=== PATIENT | female | born 1995 | race Caucasian/White ===

== ENCOUNTER 2019-01-30 19:11 | Inpatient (IN) ==
[2019-01-30] MEDS ORDERED: Famotidine 20 MG/2 ML VIAL IVP PRN (19:28)
[2019-01-30] MEDS ORDERED: Metoclopramide 10 MG/2 ML VIAL IVP PRN (19:28)
[2019-01-30] MEDS ORDERED: Naloxone 0.4 MG/ML INJ IVP PRN (19:28)
[2019-01-30] MEDS ORDERED: Ondansetron 4 MG/2 ML VIAL IVP PRN (19:28)
[2019-01-30] MEDS ORDERED: *HR* Nalbuphine 10 MG/ML AMPUL IVP PRN (19:28)
[2019-01-30] MEDS ORDERED: Ringers Solution, Lactated 1,000 ML IVC SCH (19:30)
[2019-01-30] MEDS ORDERED: miSOPROStol 25 MCG TABLET PO PRN (19:38)
[2019-01-30 19:58] LABS: Basophils % 0.2 %; Eosinophils # 0.1 K/mcL (0.0-0.6); Eosinophils % 0.5 %; Hemoglobin 13.4 g/dL (11.5-15.4); Immature Granulocytes % 0.4 % (0-4); Lymphocytes # 1.7 K/mcL (0.6-4.6); Lymphocytes % 17.3 %; Mean Corpuscular HGB Conc 34.4 g/dL (31.6-35.5); Mean Corpuscular Volume 87.4 fL (83.0-100.0); Mean Platelet Volume 10.2 fL (9.4-12.4); Monocytes # 0.5 K/mcL (0.0-1.3); Monocytes % 5.5 %; Neutrophils # 7.4 K/mcL (1.6-8.9); Platelet Count 248 K/mcL (140-400); Red Blood Count 4.46 M/mcL (3.82-4.97); Red Cell Distribution Width 12.9 % (11.5-14.5); Segmented Neutrophils % 76.1 %
[2019-01-30 20:06] LABS: Amphetamine Screen,Urine Negative ng/mL (Cutoff=1000); Barbiturate Screen,Urine Negative ng/mL (Cutoff=200); Benzodiazepines Screen,Urine Negative ng/mL (Cutoff=200); Cannabinoid Screen,Urine Negative ng/mL (Cutoff = 50); Cocaine Screen,Urine Negative ng/mL (Cutoff= 300); Opiate Screen,Urine Negative ng/mL (Cutoff=300); Phencyclidine Screen,Urine Negative ng/mL (Cutoff=25)
--- NOTE | 2019-01-30 21:08 | Event Note ---
Date of Encounter: 01/30/19 Time of Encounter: 21:02 Double cervical lipscomb balloon placed without difficulty. 60 mL sterile water placed in uterine balloon, 40 mL instilled in vaginal balloon. Patient tolerated without difficulty and informed of plan to recheck cervix in 4 hours. Patient is agreeable to plan.
--- NOTE | 2019-01-30 21:29 | OB/GYN History & Physical ---
Date of Encounter: 01/30/19 Time of Encounter: 21:28 Assessment and Plan (1) 40 weeks gestation of Current visit: Yes Status: Acute 23yo at 40+6wks GA who prsents for scheduled IOL 1. IOL - scheduled 2/2 dates - adequate pelvic by exam: 2 - induction plan lipscomb/miso, GBS negative - vertex presentation, adequate fluid by 37wks scan - GBS negative, OK for epidural when patient desires 2. MWB - normotensive - VSS, HDS, afebrile - no VB/LOF/contraction(S). Dispo: Scheduled IOL, UTD OB care with Dr. Stiles. Plan for , lipscomb/miso. AROM when 4cm and EPIDURAL when patient desires. MD ANITA History of Present Illness Chief complaint: IOL at term HPI: Ms. Augustine is a 23 year old female at 40+6wks GA who presents today for a scheduled IOL. Uncomplicated with UTD PNC with Dr. Stiles. Doing well, reports active fetus. Denies n/v/d. Denies VB/LOF/contraction(S). Was checked in the office yesterday and found to be 1cm dilated. Plan was discussed with the patient regarding IOL as we were to start miso/lipscomb. GBS negative. Vertex presentation, ~7# leopolds. Past Med Surg Social Fam HX - Past Medical History Medical history: asthma Psychiatric history: anxiety, depression - Past Surgical History Additional surgical history: D&C - Social History Smoking Status: Never smoker Alcohol use: none Drug use: none - Family History Mother Living Status: Still Living Hx Family Respiratory Disorders: Yes (Asthma) Obstetrical History - Pregnancies : 2 Para: 1 Term: 1 Livin Medications and Allergies Famotidine [Pepcid] 20 mg PO BID 01/30/19 [History] Vit/Iron Fumarate/FA [ Tablet] 1 each PO DAILY 01/30/19 [H istory] Allergy/AdvReac Type Severity Reaction Status Date / Time No Known Allergies Allergy Verified 01/30/19 19:30 Exam - Constitutional Constitutional: well developed, well nourished, no acute distress - HEENT HEENT: Normocephaly, Mucus Membranes Moist - Lungs Respiratory exam: CTAB - Cardiovascular Cardiovascular exam: RRR - Abdomen Abdomen: Present: bowel sounds normal - Vagina Vagina: Present: normal moisture - Cervix Dilation: 1 Effacement: 60 Station: -2 - Anus/Rectum Anus/Rectum: Present: normal perianal skin, heme negative Results Result Diagrams: 01/30/19 19:40 All other labs normal. - VTE Reasons for not Prescribing Prophylaxis: Treatment not Indicated - Low risk for VTE
[2019-01-31] MEDS ORDERED: *HR* Ropivacaine/PF 0.2% 20 ML VIAL EP ONE (00:57)
[2019-01-31] MEDS ORDERED: *HR* FentaNYL (PF) 100 MCG/2 ML VIAL EP ONE (00:57)
[2019-01-31] MEDS ORDERED: Epidural Premix (fent/bupiv) 110 ML EP SCH (01:00)
[2019-01-31] MEDS ORDERED: *HR* FentaNYL (PF) 100 MCG/2 ML VIAL ONE ×3 (01:01→12:26)
--- NOTE | 2019-01-31 01:01 | Anesthesia Evaluation PreOp ---
Date of Encounter: 01/31/19 Time of Encounter: 00:58 - Past History Planned Operation: sebastian Cardiac History: Denies any Significant Hx Pulmonary History: Asthma PLASTIC EYE TECHNICIAN History: Denies Any Significant HX Other Medical History: GERD Anesthesia History: No Prior Anesthetic Complications, Past Anesthesia (d&c) : Yes Test: Positive Alcohol Use: none Drug use: none Medications and Allergies Famotidine [Pepcid] 20 mg PO BID 01/30/19 [History] Vit/Iron Fumarate/FA [ Tablet] 1 each PO DAILY 01/30/19 [His tory] Allergy/AdvReac Type Severity Reaction Status Date / Time No Known Allergies Allergy Verified 01/30/19 19:30 - Meds/Allergy Pre-op Review Medications Reviewed: Yes Allergies Reviewed: Yes Beta Blockers on Current Med List: No Anesthesia Results - Labs 01/30/19 19:40 Anesthesia Exam see nsg notes Height: 5'0" Weight: 79 NPO (# of Hours): 4 Pain Scale: 7 Pain Scale Used: Numeric (1 - 10) - HEENT Pupil (Motor): Pupils equal Mallampati: II Teeth: Normal Oral Opening: Greater than 3 - PLASTIC EYE TECHNICIAN LOC: Oriented PLASTIC EYE TECHNICIAN Motor: Normal RUE, Normal LUE, Normal RLE, Normal LLE, Normal Face PLASTIC EYE TECHNICIAN Sensory: Normal: RUE, LUE, RLE, LLE, Face - Cardiac Rhythm: Regular Murmur: None - Pulmonary Breath Sounds: bilateral Clear Respiratory Effort: Symmetrical Anesthesia Assess/Plan ASA Score: 2 Level of consciousness: Cooperative Anesthetic Plan: Epidural (risks discussed, questions answered, consented) Autologous Blood: No Monitoring Plan: Standard Monitors Recovery Plan: Other
[2019-01-31] MEDS ORDERED: Lidocaine -MPF 2% 5 ML VIAL ONE ×2 (01:02→01:29)
[2019-01-31] MEDS ORDERED: Epidural Premix (fent/bupiv) 110 ML EP ONE (01:03)
--- NOTE | 2019-01-31 01:49 | Anesthesia Procedures ---
Date of Encounter: 01/31/19 Time of Encounter: 01:47 Procedures: Anesthesia - Epidural/Spinal Patient ID/Chart reviewed: Yes Patient examined: Yes OB Eval: Gestational age: 40 OB Eval: : 2 OB Eval: Hx Para: 0 OB Eval: Dilated at (cm): 4 OB Eval: Contractions: Non-stressed pattern Consent Obtained: Yes Supplemental Oxygen: None/Room Air Site Prep: Aseptic Technique, Sterile prep and drape, 0.5% Chlorhexidine/Alcohol Patient position: upright Local Anesthetic: Lidocaine 1% Amount of Local Anesthetic used: 10 Touhy Needle Gauge: 18 Touhy Needle Depth (cm): 6 Catheter Depth at Skin (cm): 15 Test Dose (1.5% Lido + Epi): Volume given (mls): 6 (1st test dose +) Test Dose Result: Negative (2nd insertion test dose neg) Loading Dose: Fentanyl (mcg): 100 Loading Dose: Other: ropivacaine 0.2% 7cc Loading Dose Administered: Thru Touhy Needle Infusion Med: 0.125% Bupivacaine w/ 2 mcg/ml Fentanyl Infusion Rate (mls/hr): 14 (pcea 5cc q30") Catheter Secured in Place: Tegaderm Interspace Used: L4-L5 Loss of Resistance (ARIAN): Yes Blood: No (L2-3 positive test dose) CSF: No Paresthesia: No Procedure: aseptic, elizabeth well VSS,effective Vitals + FHT's: 122/80 88 fht 132
[2019-01-31] MEDS ORDERED: 0.9 % Sodium Chloride 500 ML ONE (05:09)
--- NOTE | 2019-01-31 05:16 | Event Note ---
Date of Encounter: 01/31/19 Time of Encounter: 05:12 Called to evaluate patient at bedside, concern for early and late deceleration(S). Patient was still intact with a baseline of ~160bpm with mod variability. The patient is s/p epidural at 0130. AROM was performed at 0500 and internal monitors were placed. Thick meconium was appreciated as the baseline decreased to 145 and moderate variability was appreciated. We did start a 500cc amnioinfusion (not for variable decelerations) but rather for the thick meconium appreciated and minimal fluid that was appreciated. The patient is 41 weeks GA therefore it is expected that her fluid be less at time of rupture and that meconium was appreciated. SVE: 6-7/80/-1 s/p AROM. Patient is now manish s/p lipscomb and miso, not currently on PITOCIN. Adequate contractions q3-4minutes. Will continue to plan for . We did discussed STAT CS should baby have continuous late deceleration(S) despite position changes and conservative management changes. MD ANITA
--- NOTE | 2019-01-31 07:14 | Event Note ---
Date of Encounter: 01/31/19 Time of Encounter: 07:10 Called to see patient at bedside to evaluate for possible late deceleration(S). Not recurrnet, baseline still 140-150bpm with moderate variability. Scalp stimulation was performed on patient, large accels appreciated. RN had been attempted postion changes and O2 was on patient. SVE 7-8/80/-1. We changed position to hands and knees, as baby felt OP. Patient still spontaneously manish adequately without any pitocin. Internals skill in place. CEFM now reassuring with mod sandi, +accels, no decels. Will keep patient in hands and knees position for ~20 or as long as able and then rotate back to side and attempt use of peanut ball. MD ANITA
[2019-01-31] MEDS ORDERED: Bupivacaine-MPF 0.25% 10 ML VIAL ONE (07:40)
--- NOTE | 2019-01-31 08:01 | Anesthesia Progress Note ---
Date of Encounter: 01/31/19 Time of Encounter: 07:45 Anesthesia Note - Note Note: 01/31/19 07:58 called to LDR 8 for c/o pain with contactions and back pain 6/10. States has been pushing button without relief. Nursing staff states pump is failing to deliver demand bolus. Upon inspection, epidural catheter has not migrated out. Bolused patient with 8ml 0.25% buoivacaine with 100 mcg of fentanyl in 3 divided doses with stable VS and FHTs. At completion of bolus patient voiced relief of pain. Reprogrammed pump for no demand bolus and button removed.
[2019-01-31] MEDS ORDERED: Oxytocin 20 units/ LR 1000 mL 20 UNIT/1,000 ML BAG IVC SCH (08:15)
--- NOTE | 2019-01-31 11:04 | Event Note ---
Date of Encounter: 01/31/19 Time of Encounter: 11:02 Pt status unchanged. Repeat cervical check unchanged. at a -3 station with no descent. Patient is been flipped by nursing both sides of extreme positions trying to bring baby down. with occasional late decelerations. Currently tracing reassuring with category 1 tracing be noted. Adequate labor pattern has been documented. Patient currently on 6 units of Pitocin. Cervix 7-8 cm dilated and 80% effaced. Patient has been unchanged since 7 AM.
[2019-01-31] MEDS ORDERED: Azithromycin 1,000 MG in D5% in Water 500 ML IVPB ONE (11:43)
--- NOTE | 2019-01-31 11:43 | Event Note ---
Date of Encounter: 01/31/19 Time of Encounter: 11:42 Patient now with recurrent late decelerations. Patient has been flipside side. Slow return to baseline noted. Still with accelerations. Pitocin has been turned off. No cervical change. No descent of the . Patient would like to proceed with section. We will notify anesthesia.
[2019-01-31] MEDS ORDERED: CeFAZolin Premix DUPLEX 2,000 MG/50 ML BAG IVPB ONE (11:44)
[2019-01-31] MEDS ORDERED: *HR* Morphine Sulfate/PF 10 MG/10 ML AMPUL ONE (11:49)
[2019-01-31] MEDS ORDERED: EPHEDrine 50 MG/ML VIAL ONE (11:49)
[2019-01-31] MEDS ORDERED: Chloroprocaine/PF 20 ML VIAL INFILT ONE (11:49)
[2019-01-31] MEDS ORDERED: *HR* Phenylephrine 10 MG/ML VIAL ONE (11:50)
[2019-01-31] MEDS ORDERED: Water for inj. (sterile) 10 ML IV ONE (11:51)
[2019-01-31] MEDS ORDERED: *HR* Oxytocin 10 UNIT/ML VIAL IM ONE ×2 (11:54→13:14)
[2019-01-31] MEDS ORDERED: Ibuprofen 400 MG TABLET PO PRN (12:03)
[2019-01-31] MEDS ORDERED: *HR* Morphine 2 MG/ML SYRINGE IVP PRN (12:03)
[2019-01-31] MEDS ORDERED: *HR* OxyCODONE/APAP 5/325 TABLET PO PRN (12:03)
[2019-01-31] MEDS ORDERED: Naloxone 0.4 MG/ML INJ IVP PRN (12:03)
[2019-01-31] MEDS ORDERED: *HR* HYDROmorphone (PF) 1 MG/ML SYRINGE IVP PRN (12:03)
[2019-01-31] MEDS ORDERED: Ringers Solution, Lactated 1,000 ML ONE ×2 (12:05→13:14)
[2019-01-31] MEDS ORDERED: Acetaminophen IV 1,000 MG/100 ML INFUS..BTL IVPB ONE (12:08)
--- NOTE | 2019-01-31 13:12 | OB/GYN Procedure Note ---
Section - Date of procedure: 01/31/19 Preop diagnosis: arrest of descent, arrest of dilation, category 2 FHT tracing Post-op diagnosis: same Procedure: section, primary low transverse Surgeon: Westley Reyes Blood Loss: 100 Was there an facilities assistant present: No Anesthesiologist: Cathy Parra Solar Mechanical Engineer: Elli Ron Anesthesia Type: Epidural section complications: none Disposition: Post floor Specimens: Placenta - Infant (s) A Infant Delivery Date: 01/31/19 Infant Delivery Time: 12:34 Presentation: vertex Position: OA Gender: Female Viability: Viable Pounds: 6 Ounces: 14 Gram Weight: 3.125 kg at 1 minute: 9 at 5 minutes: 9 Shoulder Dystocia: not encountered Placenta: partial extraction Cord: nuchal cord - Narrative Narrative: Patient is been monitored all morning with no cervical change. still at a -3 station. No descent noted and no dilation with adequate labor contraction pattern being seen. Patient began having recurrent late decelerations. Patient was turned from side to side, placing patient in hands and knees position, Tracing would straighten out for a little bit, but then the late decelerations would return. At this point with no cervical change, no descent and recurrently decelerations we discussed section with patient. Patient and her family did wish to proceed. She was taken for primary section. Patient was taken back to the operating room with IV in place. Her epidural was bolused. She was then prepped and draped in the usual sterile fashion. Patient's urine was red going back into the OR. It has been bloody when I came in this morning. Once adequate analgesia was achieved, a Pfannenstiel incision was made. It was carried sharply through the subcutaneous and fatty tissue, until the fascial layer was reached. The fascia was then nicked in the midline and incised bilaterally with Angelo scissors. It was then dissected vertically for adequate exposure. Rectus abdominis musculature was in the midline. The peritoneum was sharply entered and dissected vertically. A bladder blade was placed at the inferior margin of the incision. The bladder flap was then developed. The bladder blade was placed over the bladder flap, and a low transverse incision was then made in the lower uterine segment. Fluid was noted be meconium-stained. The was in occiput anterior presentation. The infant's head was then delivered easily. There was a cord around the neck 1 which was reduced. The rest the infant was then delivered easily. cried immediately upon delivery. Cord was cut to cut. The was then passed to NICU team in attendance. Cord blood was obtained. The placenta was delivered via uterine massage and lavage. The uterus was then delivered. Uterine lavage again was performed. Bladder blade was placed at the inferior margin incision. The uterine incision was then closed with 0 Vicryl suture in a running locking fashion. There was excellent hemostasis. The uterus was then replaced the pelvic cavity. The pelvic cavity was then rinsed thoroughly with sterile water 2. Seeing no bleeding the procedure was terminated. Sponge, needle, and instrument count correct 2. The fascia was then closed with 0 Vicryl suture in a running nonlocking fashion. The suprafascial region was rinsed thoroughly with sterile water 2. C no bleeding the skin was then closed susanna. Patient tolerated the procedure well. Assessment blood loss 100 mL. Patient a female weight was 6 lbs. 14 oz. with Apgars of 9 at 1 minute and 9 at 5 minutes.
[2019-01-31] MEDS ORDERED: Metoclopramide 10 MG/2 ML VIAL IVP PRN (15:24)
[2019-01-31] MEDS ORDERED: Sennosides 8.6 MG TABLET PO PRN (15:24)
[2019-01-31] MEDS ORDERED: Simethicone 80 MG TAB.CHEW PO PRN (15:24)
[2019-01-31] MEDS ORDERED: Measles/Mumps/Rubella Vacc 0.5 ML VIAL SQ ONE (15:24)
[2019-01-31] MEDS ORDERED: Ondansetron 4 MG/2 ML VIAL IVP PRN (15:24)
--- NOTE | 2019-01-31 15:33 | Anesthesia Evaluation Post Op ---
Date of Encounter: 01/31/19 Time of Encounter: 15:10 - Vital Signs Vital Signs: Patient maintained normal VS throughout PACU stay and upon arrival to MIU. - Lungs Lungs: Clear Ascult./Percussion - Airway Airway: Non-obstructed - Cardiovascular Regular Rate - Mental Status Mental Status: Alert & Oriented, Answers Appropriately - Pain Pain Scale: 6 Pain Scale used: Numeric (1 - 10) - Nausea Vomiting Nausea Vomiting: Not Present - Hydration Hydration: Tolerates oral liquids, Paula catheter - Discharge PostOp Status: Transfer Patient to floor
[2019-01-31] MEDS: Oxytocin 20 units/ LR 1000 mL 20 UNIT/1,000 ML BAG IVC SCH (17:32)
[2019-01-31] MEDS: *HR* OxyCODONE/APAP 5/325 TABLET PO PRN (20:54)
[2019-01-31] MEDS: Ibuprofen 600 MG TABLET PO PRN (23:42)
[2019-02-01] MEDS: Ibuprofen 600 MG TABLET PO PRN ×2 (04:24→11:36)
[2019-02-01] MEDS: Oxytocin 20 units/ LR 1000 mL 20 UNIT/1,000 ML BAG IVC SCH (04:26)
[2019-02-01 06:25] LABS: Basophils % 0.2 %; Eosinophils # 0.1 K/mcL (0.0-0.6); Eosinophils % 0.5 %; Hematocrit 32.6 % (35.3-44.9); Immature Granulocytes % 0.6 % (0-4); Lymphocytes # 1.1 K/mcL (0.6-4.6); Lymphocytes % 8.1 %; Mean Corpuscular HGB Conc 33.7 g/dL (31.6-35.5); Mean Corpuscular Volume 88.8 fL (83.0-100.0); Mean Platelet Volume 10.1 fL (9.4-12.4); Monocytes # 0.9 K/mcL (0.0-1.3); Monocytes % 6.4 %; Neutrophils # 11.1 K/mcL (1.6-8.9); Platelet Count 184 K/mcL (140-400); Red Blood Count 3.67 M/mcL (3.82-4.97); Segmented Neutrophils % 84.2 %
[2019-02-01] MEDS: Prenatal Vit/FA 1 EACH TABLET PO SCH (07:59)
--- NOTE | 2019-02-01 08:57 | OB/GYN Progress Note ---
Date of Encounter: 02/01/19 Time of Encounter: 08:54 - Assessment and Plan (1) Status post delivery Current Visit: Yes Status: Acute Patient meeting day one milestones. Continue routine /postop care Pain well-controlled with prescribed medications. Patient is up and ambulating in room and looks very well Voiding without difficulty, tolerating regular diet, bleeding light.. No bowel movement yet. Begin postop antibiotics per Dr. Stiles's recommendation Anticipate discharge tomorrow (2) Breast feeding status of mother Current Visit: Yes Status: Acute support as needed Provide prescription for breast pump Subjective - Subjective Principal diagnosis: Status post section Interval history: Date of procedure: 01/31/19 Preop diagnosis: arrest of descent, arrest of dilation, category 2 FHT tracing Post-op diagnosis: same Procedure: section, primary low transverse Surgeon: Westley Reyes Blood Loss: 100 Was there an [employer] assistant manager present: No Anesthesiologist: Cathy Parra Commercial Lawn Specialist: Elli Ron Anesthesia Type: Epidural section complications: none Disposition: Post floor Specimens: Placenta - (s) Infant A Infant Delivery Date: 01/31/19 Infant Delivery Time: 12:34 Presentation: vertex Position: OA Gender: Female Viability: Viable Pounds: 6 Ounces: 14 Gram Weight: 3.125 kg at 1 minute: 9 at 5 minutes: 9 Shoulder Dystocia: not encountered Placenta: partial extraction Cord: nuchal cord - Narrative Narrative: Patient is been monitored all morning with no cervical change. Infant still at a -3 station. No descent noted and no dilation with adequate labor contraction pattern being seen. Patient began having recurrent late decelerations. Patient was turned from side to side, placing patient in hands and knees position, Tracing would straighten out for a little bit, but then the late decelerations would return. At this point with no cervical change, no descent and recurrently decelerations we discussed section with patient. Patient and her family did wish to proceed. She was taken for primary section. Patient was taken back to the operating room with IV in place. Her epidural was bolused. She was then prepped and draped in the usual sterile fashion. Patient's urine was red going back into the OR. It has been bloody when I came in this morning. Once adequate analgesia was achieved, a Pfannenstiel incision was made. It was carried sharply through the subcutaneous and fatty tissue, until the fascial layer was reached. The fascia was then nicked in the midline and incised bilaterally with Angelo scissors. It was then dissected vertically for adequate exposure. Rectus abdominis musculature was in the midline. The peritoneum was sharply entered and dissected vertically. A bladder blade was placed at the inferior margin of the incision. The bladder flap was then developed. The bladder blade was placed over the bladder flap, and a low transverse incision was then made in the lower uterine segment. Fluid was noted be meconium-stained. The was in occiput anterior presentation. The 's head was then delivered easily. There was a cord around the neck 1 which was reduced. The rest the infant was then delivered easily. Infant cried immediately upon delivery. Cord was cut to cut. The was then passed to NICU team in attendance. Cord blood was obtained. The placenta was delivered via uterine massage and lavage. The uterus was then delivered. Uterine lavage again was performed. Bladder blade was placed at the inferior margin incision. The uterine incision was then closed with 0 Vicryl suture in a running locking fashion. There was excellent hemostasis. The uterus was then replaced the pelvic cavity. The pelvic cavity was then rinsed thoroughly with sterile water 2. Seeing no bleeding the procedure was terminated. Sponge, needle, and instrument count correct 2. The fascia was then closed with 0 Vicryl suture in a running nonlocking fashion. The suprafascial region was rinsed thoroughly with sterile water 2. C no bleeding the skin was then closed susanna. Patient tolerated the procedure well. Assessment blood loss 100 mL. Patient a female weight was 6 lbs. 14 oz. with Apgars of 9 at 1 minute and 9 at 5 minutes. Patient reports: appetite normal, voiding normally, pain well controlled, ambulating normally : doing well, nursing well Objective - Vital Signs Latest vital signs: Vital Signs Temp Pulse Resp BP Pulse Ox 02/01/19 08:14 98.2 F 95 16 103/69 02/01/19 04:30 98.9 F 97 14 104/76 98 01/31/19 23:29 98.6 F 100 15 112/71 98 01/31/19 20:00 97.6 F 89 14 103/69 99 01/31/19 18:20 97.5 F L 93 14 113/75 98 01/31/19 17:31 98.2 F 101 14 127/73 98 01/31/19 16:36 98.0 F 87 14 125/79 98 01/31/19 16:01 98.1 F 92 14 123/77 99 01/31/19 15:30 97.7 F 86 14 119/75 99 Intake and Output 01/31/19 02/01/19 02/01/19 23:59 07:59 15:59 Intake Total 1800 / 1800 Output Total 1400 / 2600 1200 / 1200 Balance -1400 / -2600 600 / 600 Intake: IV Fluids 1000 / 1000 Pitocin 20 unit In 1,000 ml @ 1000 / 1000 125 mls/hr IVC .Q8H ANJALI Rx#: [id number] Oral 800 / 800 Output: Urine 500 / 500 1200 / 1200 Catheter 900 / 2100 Other: Weight 77.111 kg Patient Weight 02/01/19 23:59 Weight 77.111 kg - Exam Lungs: bilateral: normal Chest: Normal S1, Normal S2 Extremities: Present: normal Abdomen: Present: normal appearance, soft Incision: Present: normal, intact (with susanna) Uterus: Present: normal, firm Fundal Height: 0 (@u) - Labs Labs: Laboratory Results - last 24 hr 02/01/19 06:03 WBC 13.2 H RBC 3.67 L Hgb 11.0 L D Hct 32.6 L MCV 88.8 MCH 30.0 MCHC 33.7 RDW 13.0 Plt Count 184 MPV 10.1 Immature Gran % 0.6 Seg Neutrophils % 84.2 Lymphocytes % 8.1 Monocytes % 6.4 Eosinophils % 0.5 Basophils % 0.2 Neutrophils # 11.1 H Lymphocytes # 1.1 Monocytes # 0.9 Eosinophils # 0.1 Basophils # 0.0
[2019-02-01] MEDS ORDERED: NON-FORMULARY MEDICATION 1 EACH EACH (Prenatal Vit/Iron Fumarate/Fa [Prenatal Tablet] 1 EA PO SCH (09:00)
[2019-02-01] MEDS: cephALEXin 500 MG CAPSULE PO SCH ×2 (09:35→19:46)
[2019-02-01] MEDS: *HR* OxyCODONE/APAP 5/325 TABLET PO PRN ×2 (09:45→19:46)
[2019-02-02] MEDS: Ibuprofen 600 MG TABLET PO PRN ×2 (00:06→09:02)
[2019-02-02] MEDS: *HR* OxyCODONE/APAP 5/325 TABLET PO PRN ×2 (03:35→11:16)
[2019-02-02] MEDS ORDERED: Lanolin 7 G OINT...G. TP PRN (03:49)
[2019-02-02 08:10] VITALS: BP 114/74
[2019-02-02] MEDS: cephALEXin 500 MG CAPSULE PO SCH (09:02)
[2019-02-02] MEDS: Prenatal Vit/FA 1 EACH TABLET PO SCH (09:02)
--- NOTE | 2019-02-02 09:51 | Discharge Summary ---
Date of Encounter: 02/02/19 Time of Encounter: 09:48 - Discharge Diagnosis (1) Status post primary low transverse section Priority: Primary Status: Acute Comments: Feeling well Tolerating regular diet Pain well-controlled with by mouth pain meds Ambulating independently Voiding independently Lochia light Passing flatus, no BM yet Vital signs stable Discharge home today (2) Breast feeding status of mother Priority: Secondary Status: Acute Comments: Community resources provided - Discharge Medications Prescriptions: New Breast Pump [BREAST PUMP] 1 each .ROUTE AD #1 each cephALEXin [Keflex] 500 mg PO BID 4 Days #8 capsule Ibuprofen [Motrin] 600 mg PO Q6HR PRN #30 tablet PRN Reason: Cramping OxyCODONE/APAP 5/325 [Percocet 5/325 MG] 1 each PO Q6H PRN 5 Days #20 tablet PRN Reason: Moderate pain 4-6 Docusate [Colace] 100 mg PO BID #30 capsule Lanolin [Lansinoh] 1 appl TP QID PRN oint...g. PRN Reason: Continued Vit/Iron Fumarate/FA [ Tablet] 1 each PO DAILY Famotidine [Pepcid] 20 mg PO BID Home Medications: Famotidine [Pepcid] 20 mg PO BID 01/30/19 [History] Vit/Iron Fumarate/FA [ Tablet] 1 each PO DAILY 01/30/19 [Histo ry] Breast Pump [BREAST PUMP] 1 each .ROUTE AD #1 each 02/01/19 [Rx] Docusate [Colace] 100 mg PO BID #30 capsule 02/02/19 [Rx] Ibuprofen [Motrin] 600 mg PO Q6HR PRN #30 tablet 02/02/19 [Rx] Lanolin [Lansinoh] 1 appl TP QID PRN oint...g. 02/02/19 [Rx] OxyCODONE/APAP 5/325 [Percocet 5/325 MG] 1 each PO Q6H PRN 5 Days #20 tablet 02/02/19 [Rx] cephALEXin [Keflex] 500 mg PO BID 4 Days #8 capsule 02/02/19 [Rx] Allergies/Adverse Reactions: Allergy/AdvReac Type Severity Reaction Status Date / Time No Known Allergies Allergy Verified 01/30/19 19:30 Data Procedures and tests throughout hospitalization: Laboratory Tests 01/30/19 01/30/19 02/01/19 19:40 19:40 06:03 WBC 9.7 13.2 H RBC 4.46 3.67 L Hgb 13.4 11.0 L D Hct 39.0 32.6 L MCV 87.4 88.8 MCH 30.0 30.0 MCHC 34.4 33.7 RDW 12.9 13.0 Plt Count 248 184 MPV 10.2 10.1 Immature Gran % 0.4 0.6 Seg Neutrophils % 76.1 84.2 Lymphocytes % 17.3 8.1 Monocytes % 5.5 6.4 Eosinophils % 0.5 0.5 Basophils % 0.2 0.2 Neutrophils # 7.4 11.1 H Lymphocytes # 1.7 1.1 Monocytes # 0.5 0.9 Eosinophils # 0.1 0.1 Basophils # 0.0 0.0 Urine Opiates Screen Negative Ur Barbiturates Screen Negative Ur Phencyclidine Scrn Negative Ur Amphetamines Screen Negative U Benzodiazepines Scrn Negative Urine Cocaine Screen Negative U Marijuana (THC) Screen Negative Ur Drug Screen Interp See Below Date of admission: 01/30/19 19:11 Primary care physician: PCP NONE Discharging clinician: Debra Claire Anticipated date of discharge: 02/02/19 - Patient Status Disposition: Home, Self-Care Condition: Good Functional capacity at discharge: independent ambulation Overall status at discharge: patient is progressing back to baseline - Discharge Instructions Follow Up With: NONE,PCP [Primary Care Provider] - Westley Stiles MD [Partnered Physician] - - Diet and Activity Activity: increase activity as tolerated Diet: regular diet Hospital Course Reason for admission: induction of labor, IUP at term Delivery: section Episiotomy: none Laceration: none Other procedures: none complications: none Discharge diagnosis: IUP at term delivered [place] baby: female Hospital course: Patient presented for term induction of labor. She progressed to 8 cm and did not dilate any further. Nor did she have descent. She was taken to C- section for failed induction of labor and intolerance to labor secondary to repetitive late decelerations and resolved with intervention. Her course has been uncomplicated. She is requesting to go home today. She will be discharged home with appropriate medications and follow-up. Time Attestation: Total time spent providing and/or coordinating discharge services: Time Spent: Less than 30 minutes - VTE Reasons for not Prescribing Prophylaxis: Treatment not Indicated - Low risk for VTE Documentation of Mechanical Device: Intermittent pneumatic compression device Exam - Constitutional Vitals: Temp Pulse Resp BP Pulse Ox 98.0 F 90 16 114/74 99 02/02/19 08:08 02/02/19 08:08 02/02/19 08:08 02/02/19 08:08 02/02/19 08:08 General appearance IM: A&O X 3 - Respiratory Respiratory exam: Present: CTAB - Cardiovascular Cardiovascular exam IM: Present: RRR, +S1, +S2 - GI/Abdominal GI/Abdominal exam IM: normal bowel sounds, no peritoneal signs Incision: normal, dry, intact - Rectal Rectal exam: deferred - Uterine Tone: Firm Uterus Position: At Umbilicus, Midline - Extremities Exam Extremities exam IM: Present: full ROM, normal capillary refill, normal inspecti on, radial pulses palpable and symmetrical - Neurological Exam Neurological exam: alert, CN II-XII intact, normal gait, oriented X3, reflexes normal, no focal deficits, strengths equal and symetr throughout - Psychiatric Additional comments: Patient reports history of anxiety. Signs and symptoms of depression and anxiety discussed with patient and family in both verbalized understanding of when to seek help. - Skin Additional comments: Breasts: Soft, nontender; nipples intact without erythema
[2019-02-02] MEDS ORDERED: Measles/Mumps/Rubella Vacc 0.5 ML VIAL SQ ONE (10:45)
== END 2019-02-02 13:34 | disposition home or self-care (01) | DRG 788 ==
LOC: 1NENULAB 19:11 → 1NENUOBS 01-31 15:24
PROVIDERS: ADMIT Student in an Organized Health Care Education/Training Program; ATTEND Obstetrics & Gynecology

== ENCOUNTER 2019-04-02 16:21 | Observation (INO) ==
[2019-04-02 17:07] LABS: Hematocrit 41.4 % (35.3-44.9); Hemoglobin 13.9 g/dL (11.5-15.4); Mean Corpuscular HGB Conc 33.6 g/dL (31.6-35.5); Mean Corpuscular Hemoglobin 29.6 pg (28.0-33.3); Mean Corpuscular Volume 88.3 fL (83.0-100.0); Mean Platelet Volume 9.3 fL (9.4-12.4); Platelet Count 249 K/mcL (140-400); Red Blood Count 4.69 M/mcL (3.82-4.97); Red Cell Distribution Width 11.9 % (11.5-14.5); White Blood Count 4.4 K/mcL (4.3-11.1)
--- NOTE | 2019-04-02 17:14 | Emergency Department Note ---
Disposition Clinical Impression: Biliary colic Disposition: Admitted As Inpatient Condition: Fair Referrals: NONE,PCP [Primary Care Provider] - Forms: ED Satisfaction Letter, Work/School Release Time of Disposition: 19:34 General Adult HPI - General Chief complaint: ED Abdominal Pain Stated complaint: Gallbladder pain Time Seen by Provider: 04/02/19 16:32 Nursing Notes Reviewed: Yes Vital Signs Reviewed: Yes - History of Present Illness HPI Narrative: Right upper quadrant abdominal pain which is present during her in the winter and spring and then occurred one week ago and now has been present since last night. It is a dull feeling. Intermittent. She denies any dysuria or urinary frequency, blood in the urine or stool, vaginal bleeding. No abnormal vaginal discharge. No fevers. She did vomit twice around 4:00 in the morning. Social history: She is here with her grandmother. No smoking or alcohol Pain Scale: 3 - Related Data Home Medications Medication Instructions Recorded Confirmed Famotidine [Pepcid] 20 mg PO BID 01/30/19 01/30/19 Vit/Iron Fumarate/FA 1 each PO DAILY 01/30/19 01/30/19 [ Tablet] Previous Rx's Medication Instructions Recorded Breast Pump [BREAST PUMP] 1 each .ROUTE AD #1 each 02/01/19 Docusate [Colace] 100 mg PO BID #30 capsule 02/02/19 Ibuprofen [Motrin] 600 mg PO Q6HR PRN #30 tablet 02/02/19 Lanolin [Lansinoh] 1 appl TP QID PRN oint...g. 02/02/19 Allergies Allergy/AdvReac Type Severity Reaction Status Date / Time No Known Allergies Allergy Verified 01/30/19 19:30 All systems ED: reviewed and negative except as stated. Past Medical History - Past Medical History Medical history: Reports: asthma Psychiatric history: Reports: anxiety, depression - Social History Smoking Status: Never smoker Alcohol use: Reports: none Drug use: Reports: none Physical Exam CONSTITUTIONAL: Alert and oriented X3, well-nourished, well appearing, in no apparent distress HEAD: Normocephalic; atraumatic. EYES: PERRL, no scleral icterus. NOSE: The nose is normal in appearance without rhinorrhea RESP: Normal chest excursion with respiration; breath sounds clear and equal bilaterally; no wheezes, rhonchi, or rales CARD: Regular rhythm, without murmurs, rub or gallop ABD: Non-distended; mild discomfort with palpation right upper quadrant but this area is soft without rigidity, rebound, guarding. Normal appearance. Elsewhere the abdomen is non-tender, soft,without rigidity, rebound or guarding SKIN: Normal for age and race; warm and dry; no apparent lesions Course Vital Signs Temperature 97.7 F 04/02/19 16:22 Pulse Rate 75 04/02/19 16:22 Respiratory Rate 20 04/02/19 16:22 Blood Pressure 121/80 04/02/19 16:22 O2 Sat by Pulse Oximetry 98 04/02/19 16:22 Temperature 97.7 F 04/02/19 18:16 Pulse Rate 75 04/02/19 18:16 Respiratory Rate 20 04/02/19 18:16 Blood Pressure 121/80 04/02/19 18:16 O2 Sat by Pulse Oximetry 98 04/02/19 18:16 Oxygen Delivery Oxygen Delivery Room Air Medical Decision Making - MDM Narrative Medical decision making narrative: Labs, gallbladder ultrasound, urine testing. Results pending. The patient is bright and alert and in no distress. 1713 I did see the patient again and also spoke with Dr. David Tracey who will come down to the ED to see the patient. Does have significant elevation in her liver enzymes. The patient does not want to stay because she is going through a bad divorce and is due to drop off her 9-week-old infant with the father of the baby tomorrow. She can further discuss this with Dr. David Tracey and at this time disposition is pending results of the conversation. 8 I did speak with Dr. David Tracey and she has seen the patient spoke with the patient the patient will be admitted to the hospital for biliary colic - Medical Records Medical records reviewed: Yes I reviewed the patient's medical records. - Lab Data Lab results reviewed: Yes I reviewed the patient's lab results. Result diagrams: 04/02/19 16:53 04/02/19 16:53 Lab Results 04/02/19 04/02/19 04/02/19 Range/Units 16:53 16:53 18:20 WBC 4.4 (4.3-11.1) K/mcL RBC 4.69 (3.82-4.97) M/mcL Hgb 13.9 (11.5-15.4) g/dL Hct 41.4 (35.3-44.9) % MCV 88.3 (83.0-100.0) fL MCH 29.6 (28.0-33.3) pg MCHC 33.6 (31.6-35.5) g/dL RDW 11.9 (11.5-14.5) % Plt Count 249 (140-400) K/mcL MPV 9.3 L (9.4-12.4) fL Sodium 137 (136-145) mEq/L Potassium 4.0 (3.5-5.1) mEq/L Chloride 102 (98-107) mEq/L Carbon Dioxide 25 (23-29) mEq/L BUN 7 (6-20) mg/dL Creatinine 0.62 (0.60-1.20) mg/dL Est GFR ( Amer) > 60 (> 60) Est GFR (Non-Af Amer) > 60 (> 60) BUN/Creatinine Ratio 11 (6-26) Glucose 91 (70-105) mg/dL Calculated Osmolality 282 (280-300) Calcium 9.6 (8.6-10.3) mg/dL Total Bilirubin 5.1 H (0.3-1.0) mg/dL Direct Bilirubin 3.1 H (0.0-0.2) mg/dL Indirect Bilirubin 2.0 H (0.0-1.2) mg/dL AST 1093 H (13-39) Units/L ALT 1064 H (7-52) Units/L Alkaline Phosphatase 270 H (34-104) Units/L Serum Total Protein 7.4 (6.4-8.9) g/dL Albumin 4.6 (3.5-5.7) g/dL Globulin 2.8 (2.4-3.5) g/dL Albumin/Globulin Ratio 1.6 (1.1-2.2) Lipase 41 (11-82) Units/L Urine Color Yellow (Yellow) Urine Clarity Cloudy A (Clear) Urine pH 6.5 (5.0-8.0) pH Units Ur Specific Deeth 1.005 L (1.010-1.025) Urine Protein Negative (Neg-Trace) mg/dL Urine Glucose (UA) Normal (Normal) mg/dL Urine Ketones Trace H (Negative) mg/dL Urine Blood Negative (Negative) Urine Nitrite Negative (Negative) Urine Bilirubin Small H (Negative) Urine Urobilinogen Normal (Normal) mg/dL Ur Leukocyte Esterase Moderate H (Negative) Urine Microscopic RBC 0-3 (0-3) per hpf Urine Microscopic WBC 5-15 H (0-3) per hpf Ur Squamous Epith Cells Many H (None-Few) per lpf Urine Bacteria None Seen (None-Few) per hpf Hyaline Casts None Seen (None-Few) per lpf Urine Test (Negative) 04/02/19 Range/Units 18:20 WBC (4.3-11.1) K/mcL RBC (3.82-4.97) M/mcL Hgb (11.5-15.4) g/dL Hct (35.3-44.9) % MCV (83.0-100.0) fL MCH (28.0-33.3) pg MCHC (31.6-35.5) g/dL RDW (11.5-14.5) % Plt Count (140-400) K/mcL MPV (9.4-12.4) fL Sodium (136-145) mEq/L Potassium (3.5-5.1) mEq/L Chloride (98-107) mEq/L Carbon Dioxide (23-29) mEq/L BUN (6-20) mg/dL Creatinine (0.60-1.20) mg/dL Est GFR ( Amer) (> 60) Est GFR (Non-Af Amer) (> 60) BUN/Creatinine Ratio (6-26) Glucose (70-105) mg/dL Calculated Osmolality (280-300) Calcium (8.6-10.3) mg/dL Total Bilirubin (0.3-1.0) mg/dL Direct Bilirubin (0.0-0.2) mg/dL Indirect Bilirubin (0.0-1.2) mg/dL AST (13-39) Units/L ALT (7-52) Units/L Alkaline Phosphatase (34-104) Units/L Serum Total Protein (6.4-8.9) g/dL Albumin (3.5-5.7) g/dL Globulin (2.4-3.5) g/dL Albumin/Globulin Ratio (1.1-2.2) Lipase (11-82) Units/L Urine Color (Yellow) Urine Clarity (Clear) Urine pH (5.0-8.0) pH Units Ur Specific Deeth (1.010-1.025) Urine Protein (Neg-Trace) mg/dL Urine Glucose (UA) (Normal) mg/dL Urine Ketones (Negative) mg/dL Urine Blood (Negative) Urine Nitrite (Negative) Urine Bilirubin (Negative) Urine Urobilinogen (Normal) mg/dL Ur Leukocyte Esterase (Negative) Urine Microscopic RBC (0-3) per hpf Urine Microscopic WBC (0-3) per hpf Ur Squamous Epith Cells (None-Few) per lpf Urine Bacteria (None-Few) per hpf Hyaline Casts (None-Few) per lpf Urine Test Negative (Negative) - Radiology Data Radiology results reviewed: Yes I reviewed the patient's radiology results.
[2019-04-02 17:47] LABS: Alanine Aminotransferase 1064 Units/L (7-52); Albumin 4.6 g/dL (3.5-5.7); Albumin/Globulin Ratio 1.6 (1.1-2.2); Alkaline Phosphatase 270 Units/L (34-104); Aspartate Amino Transferase 1093 Units/L (13-39); BUN/Creatinine Ratio 11 (6-26); Bilirubin,Direct 3.1 mg/dL (0.0-0.2); Bilirubin,Total 5.1 mg/dL (0.3-1.0); Blood Urea Nitrogen 7 mg/dL (6-20); Calcium 9.6 mg/dL (8.6-10.3); Carbon Dioxide 25 mEq/L (23-29); Chloride 102 mEq/L (98-107); Globulin 2.8 g/dL (2.4-3.5); Glucose 91 mg/dL (70-105); Lipase 41 Units/L (11-82); Osmolality,Calculated 282 (280-300); Sodium 137 mEq/L (136-145); Total Protein 7.4 g/dL (6.4-8.9); eGFR For African Americans > 60 (> 60); eGFR For Non-African Americans > 60 (> 60)
[2019-04-02 18:46] LABS: Bilirubin,Urine Small (Negative); Blood,Urine Negative (Negative); Clarity,Urine Cloudy (Clear); Color,Urine Yellow (Yellow); Glucose,Urine (UA) Normal (Normal); Ketones,Urine Trace mg/dL (Negative); Leukocyte Esterase,Urine Moderate (Negative); Nitrite,Urine Negative (Negative); PH,Urine 6.5 pH Units (5.0-8.0); Protein,Urine Negative (Neg-Trace); Specific Gravity,Urine 1.005 (1.010-1.025); Urobilinogen,Urine Normal (Normal)
[2019-04-02 18:49] LABS: Bacteria,Urine None Seen per hpf (None-Few); Hyaline Casts,Urine None Seen per lpf (None-Few); RBC,Urine 0-3 per hpf (0-3); Squamous Epithelial Cell,Urine Many per lpf (None-Few)
--- NOTE | 2019-04-02 18:53 | Acute Care Surgery H&P ---
Date of Encounter: 04/02/19 Time of Encounter: 18:50 Assessment and Plan (1) Symptomatic cholelithiasis Current Visit: Yes Status: Acute The assessment and plan as outlined above was discussed with the patient and/or family members who expressed understanding and agreement. All questions were answered. Pt diagnosis of symptomatic cholelithiasis is discussed. Laparoscopic Cholecystectomy with IOC is recommended. Procedure for the surgery, risks and benefits are discussed in detail. Possible known complications for Laparoscopic Cholecystectomy with IOC are bleeding, infection, bile duct injury, bile leak, small intestine or stomach injury, stroke, DVT/PE, AL or . Pt understands these risks, which in this case are low. Pt wishes to proceed with surgery as soon as possible. Informed consent is obtained. Pt condition is stable. Surgery is scheduled. (2) Elevated transaminase level Current Visit: Yes Status: Acute The assessment and plan as outlined above was discussed with the patient and/or family members who expressed understanding and agreement. All questions were answered. (3) Hyperbilirubinemia Current Visit: Yes Status: Acute The assessment and plan as outlined above was discussed with the patient and/or family members who expressed understanding and agreement. All questions were answered. History of Present Illness Chief complaint: RUQ abdominal pain HPI: This 23 y/o pt presents to [facility] c/o severe RUQ abdominal pain. She is 9 weeks post . Pt reports pain is severe and unrelenting. Pt c/o epigastric pain as well. Pt reports pain radiates into back. Pt reports nausea without vomiting. Pt denies changes in BM. Pt denies CP or SOB. Pt denies fever. Past Med Surg Social Fam HX - Past Medical History Medical history: asthma Psychiatric history: anxiety, depression - Past Surgical History Additional surgical history: D&C - Social History Smoking Status: Never smoker Alcohol use: none Drug use: none - Family History Mother Living Status: Still Living Hx Family Respiratory Disorders: Yes (Asthma) Medications and Allergies Vit/Iron Fumarate/FA [ Tablet] 1 each PO DAILY 01/30/19 [History] Breast Pump [BREAST PUMP] 1 each .ROUTE AD #1 each 02/01/19 [Rx] Ibuprofen [Motrin] 600 mg PO Q6HR PRN #30 tablet 02/02/19 [Rx] Lanolin [Lansinoh] 1 appl TP QID PRN oint...g. 02/02/19 [Rx] Ranitidine HCl [Zantac 75] 75 mg PO DAILY 04/02/19 [History] Allergy/AdvReac Type Severity Reaction Status Date / Time No Known Allergies Allergy Verified 01/30/19 19:30 Review of Systems All systems PM: The remainder of the systems were reviewed and are negative - Constitutional as per HPI, no anorexia, no chills, no fatigue, no fever(s), no malaise, no night sweats, no weakness - EENT Nose, mouth and throat: no dry mouth, no dysphagia, no nasal congestion, no nasal discharge, no sinus pain, no sinus pressure, no sore throat - Cardiovascular no chest pain, no diaphoresis, no dyspnea, no edema - Respiratory no cough, no dyspnea, no wheezing - Gastrointestinal abdominal pain, belching, bloating, cramping, nausea, no constipation, no diarrhea, no heartburn, no vomiting - Genitourinary Genitourinary: no dysuria, no flank pain, no urinary frequency - Musculoskeletal back pain, no joint swelling, no limited range of motion, no neck pain - Integumentary no dry skin, no pruritus, no rash, no wounds, no jaundice - Neurological no dizziness, no focal weakness, no weakness - Psychiatric no anxiety, no depression - Endocrine no fatigue - Hematologic/Lymphatic no easy bleeding, no easy bruising General Surgery Exam Initial Vital Signs Temp Pulse Resp BP Pulse Ox 97.7 F 75 20 121/80 98 04/02/19 16:22 04/02/19 16:22 04/02/19 16:22 04/02/19 16:22 04/02/19 16:22 - General physical appearance well developed, well nourished, no distress. negative: jaundice - Eyes PERRL, normal ocular movement, icteric - ENT normal mucosa, no congestion. negative: nasal discharge - Neck trachea midline, no lymphadectomy, no venous distension - Respiratory normal respiratory effort, clear to auscultation - Cardiovascular Cardiovascular exam: Present: RRR. Absent: murmurs, JVD - Abdomen Abdomen general surgery: Present: bowel sounds present, soft, tender. Absent: guarding, rebound Abdominal Tenderness: Present: RUQ - Genitourinary Present: normal external genitalia - Integumentary Integumentary general surgery: Present: warm and dry - Neurologic Present: CN 2-12 grossly intact, normal coordination - Musculoskeletal Present: normal posture - Psychiatric Psychiatric general surgery: Present: A&Ox3, appropriate Results - Labs 04/02/19 16:53 04/02/19 16:53 Abnormal lab results MPV 9.3 fL (9.4-12.4) L 04/02/19 16:53 5.1 mg/dL (0.3-1.0) H 04/02/19 16:53 3.1 mg/dL (0.0-0.2) H 04/02/19 16:53 2.0 mg/dL (0.0-1.2) H 04/02/19 16:53 AST 1093 Units/L (13-39) H 04/02/19 16:53 ALT 1064 Units/L (7-52) H 04/02/19 16:53 270 Units/L (34-104) H 04/02/19 16:53 Diabetes panel 04/02/19 Range/Units 16:53 Sodium 137 (136-145) mEq/L Potassium 4.0 (3.5-5.1) mEq/L Chloride 102 (98-107) mEq/L Carbon Dioxide 25 (23-29) mEq/L BUN 7 (6-20) mg/dL Creatinine 0.62 (0.60-1.20) mg/dL Glucose 91 (70-105) mg/dL Calcium 9.6 (8.6-10.3) mg/dL AST 1093 H (13-39) Units/L ALT 1064 H (7-52) Units/L Alkaline Phosphatase 270 H (34-104) Units/L Albumin 4.6 (3.5-5.7) g/dL Calcium panel 04/02/19 Range/Units 16:53 Calcium 9.6 (8.6-10.3) mg/dL Albumin 4.6 (3.5-5.7) g/dL Pituitary panel 04/02/19 Range/Units 16:53 Sodium 137 (136-145) mEq/L Potassium 4.0 (3.5-5.1) mEq/L Chloride 102 (98-107) mEq/L Carbon Dioxide 25 (23-29) mEq/L BUN 7 (6-20) mg/dL Creatinine 0.62 (0.60-1.20) mg/dL Glucose 91 (70-105) mg/dL Calcium 9.6 (8.6-10.3) mg/dL Adrenal panel 04/02/19 Range/Units 16:53 Sodium 137 (136-145) mEq/L Potassium 4.0 (3.5-5.1) mEq/L Chloride 102 (98-107) mEq/L Carbon Dioxide 25 (23-29) mEq/L BUN 7 (6-20) mg/dL Creatinine 0.62 (0.60-1.20) mg/dL Glucose 91 (70-105) mg/dL Calcium 9.6 (8.6-10.3) mg/dL Total Bilirubin 5.1 H (0.3-1.0) mg/dL AST 1093 H (13-39) Units/L ALT 1064 H (7-52) Units/L Alkaline Phosphatase 270 H (34-104) Units/L Albumin 4.6 (3.5-5.7) g/dL All other labs normal. - Imaging US - abdomen: image reviewed (+cholelithiasis)
[2019-04-02] MEDS: Acetaminophen IV 1,000 MG/100 ML INFUS..BTL IVPB SCH (23:09)
[2019-04-02] MEDS: Ondansetron 4 MG/2 ML VIAL IVP PRN (23:42)
[2019-04-03 02:03] LABS: White Blood Count 4.4 K/mcL (4.3-11.1)
[2019-04-03 02:04] LABS: Basophils # 0.1 K/mcL (0.0-0.2); Basophils % 1.1 %; Eosinophils # 0.2 K/mcL (0.0-0.6); Eosinophils % 3.4 %; Hematocrit 37.1 % (35.3-44.9); Hemoglobin 12.6 g/dL (11.5-15.4); Immature Granulocytes % 0.2 % (0-4); Lymphocytes # 1.5 K/mcL (0.6-4.6); Lymphocytes % 34.8 %; Mean Corpuscular Hemoglobin 29.2 pg (28.0-33.3); Mean Corpuscular Volume 86.1 fL (83.0-100.0); Mean Platelet Volume 9.4 fL (9.4-12.4); Monocytes # 0.4 K/mcL (0.0-1.3); Monocytes % 9.9 %; Neutrophils # 2.2 K/mcL (1.6-8.9); Platelet Count 222 K/mcL (140-400); Red Blood Count 4.31 M/mcL (3.82-4.97); Red Cell Distribution Width 11.8 % (11.5-14.5); Segmented Neutrophils % 50.6 %
[2019-04-03 02:30] LABS: Alanine Aminotransferase 822 Units/L (7-52); Albumin/Globulin Ratio 1.6 (1.1-2.2); Alkaline Phosphatase 234 Units/L (34-104); Aspartate Amino Transferase 558 Units/L (13-39); BUN/Creatinine Ratio 11 (6-26); Bilirubin,Total 4.1 mg/dL (0.3-1.0); Blood Urea Nitrogen 6 mg/dL (6-20); Carbon Dioxide 26 mEq/L (23-29); Chloride 104 mEq/L (98-107); Globulin 2.5 g/dL (2.4-3.5); Glucose 73 mg/dL (70-105); Osmolality,Calculated 282 (280-300); Potassium 3.6 mEq/L (3.5-5.1); Sodium 138 mEq/L (136-145); Total Protein 6.5 g/dL (6.4-8.9); eGFR For African Americans > 60 (> 60); eGFR For Non-African Americans > 60 (> 60)
[2019-04-03] MEDS: Acetaminophen IV 1,000 MG/100 ML INFUS..BTL IVPB SCH ×2 (06:53→16:51)
[2019-04-03] MEDS ORDERED: Ondansetron 4 MG/2 ML VIAL ONE ×2 (09:52→15:43)
[2019-04-03] MEDS ORDERED: *HR* Succinylcholine 200 MG/10 ML VIAL IVP ONE (09:52)
[2019-04-03] MEDS ORDERED: *HR* Rocuronium Bromide 50 MG/5 ML VIAL ONE (09:52)
[2019-04-03] MEDS ORDERED: Lidocaine -MPF 2% 2 ML VIAL ONE (09:52)
[2019-04-03] MEDS ORDERED: Dexamethasone 4 MG/ML VIAL ONE ×2 (09:52→15:43)
[2019-04-03] MEDS: Ondansetron 4 MG/2 ML VIAL IVP PRN ×2 (11:30→15:45)
--- NOTE | 2019-04-03 11:51 | Anesthesia Evaluation PreOp ---
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 02/02/19 [Rx] Ranitidine HCl [Zantac 75] 75 mg PO DAILY 04/02/19 [History] Allergy/AdvReac Type Severity Reaction Status Date / Time No Known Allergies Allergy Verified 01/30/19 19:30 - Meds/Allergy Pre-op Review Medications Reviewed: Yes Allergies Reviewed: Yes Beta Blockers on Current Med List: No Anesthesia Results - Labs 04/03/19 01:43 04/03/19 01:43 Laboratory Tests 04/02/19 18:20 Urine Test Negative Impressions Gallbladder Ultrasound 04/02/19 16:41 IMPRESSION: 1. Small gallstones or sludge without evidence of cholecystitis. 2. Common bile duct is at the upper limits of normal measuring 6 mm. Correlate with labs for any evidence of biliary obstruction. 3. Fatty/fibrotic infiltration of the liver. D/ / Dean Barksdale MD / Dean Barksdale MD Interpreting Provider: Dean Barksdale MD Laboratory Results Anesthesia Exam Vital Signs Temp Pulse Resp BP Pulse Ox 04/03/19 08:16 98.1 F 68 16 102/64 96 04/03/19 08:00 99 04/03/19 03:21 97.8 F 76 16 100/66 99 04/03/19 00:12 97.4 F L 72 16 99/65 98 04/02/19 21:01 98 F 66 17 128/78 99 04/02/19 18:16 97.7 F 75 20 121/80 98 04/02/19 16:22 97.7 F 75 20 121/80 98 Intake and Output 04/02/19 04/03/19 04/03/19 23:59 07:59 15:59 Intake Total 100 / 100 100 / 100 Balance 100 / 100 100 / 100 Intake: IV Fluids 100 / 100 100 / 100 Ofirmev 1,000 mg/100 ml 1,000 100 / 100 100 / 100 mg In 100 ml @ 400 mls/hr IVPB Q6HR [facility] Rx#:[id number] Other: Stool Characteristics Normal for Patient # Voids 1 Weight 63.6 kg 63.5 kg Patient Weight 04/03/19 23:59 Weight 63.5 kg Height: 5' Weight: 139# BMI = 27 NPO (# of Hours): MNOc - HEENT Pupil (Motor): Pupils equal, EOMI Mallampati: II Teeth: Normal Oral Opening: Greater than 3 - 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 - MD Elva <Singh Valladares - Last Filed: 04/03/19 13:25> Date of Encounter: 04/03/19 - Past History Planned Operation: Lap Kateryna. Anesthesia Results - Labs 04/03/19 01:43 04/03/19 01:43
[2019-04-03] MEDS ORDERED: *HR* Midazolam HCl 2 MG/2 ML VIAL ONE (11:57)
[2019-04-03] MEDS ORDERED: *HR* FentaNYL (PF) 100 MCG/2 ML VIAL ONE (11:57)
[2019-04-03] MEDS ORDERED: *HR* Propofol 200 MG/20 ML VIAL IVP ONE (11:57)
[2019-04-03] MEDS ORDERED: Scopolamine Patch 1.5 MG PATCH.TD72 ONE (12:09)
[2019-04-03] MEDS ORDERED: Acetaminophen IV 1,000 MG/100 ML INFUS..BTL ONE (12:09)
[2019-04-03] MEDS ORDERED: Famotidine 20 MG/2 ML VIAL ONE (12:10)
[2019-04-03] MEDS ORDERED: Bupivacaine/EPI 1:200k 0.5%PF 30 ML VIAL ONE (13:29)
[2019-04-03] MEDS ORDERED: Isovue-300 50 ML VIAL ONE (13:30)
[2019-04-03] MEDS ORDERED: Ketorolac 30 MG/ML VIAL ONE (14:33)
[2019-04-03] MEDS ORDERED: EPHEDrine 50 MG/ML VIAL ONE (14:53)
[2019-04-03] MEDS ORDERED: *HR* HYDROMORPHONE 2 MG/ML VIAL ONE (15:19)
[2019-04-03] MEDS ORDERED: *HR* Promethazine 25 MG/ML VIAL ONE (15:42)
[2019-04-03] MEDS ORDERED: *HR* Promethazine 25 MG/ML VIAL IVP PRN (15:49)
[2019-04-03] MEDS ORDERED: Dexamethasone 4 MG/ML VIAL IVP ONE (15:49)
--- NOTE | 2019-04-03 16:10 | Anesthesia Evaluation Post Op ---
Date of Encounter: 04/03/19 Time of Encounter: 16:06 - Vital Signs Vital Signs: vss - Lungs Lungs: Clear Ascult./Percussion - Airway Airway: Non-obstructed - Cardiovascular Baseline Rhythm - Mental Status Mental Status: Asleep with brisk response to light stimulation - Pain Pain Scale: 4 Pain Scale used: Numeric (1 - 10) - Nausea Vomiting Nausea Vomiting: Not Present - Hydration Hydration: Ice chips - Discharge PostOp Status: Transfer Patient to floor
--- NOTE | 2019-04-03 16:16 | Operative Note ---
Date of procedure: 04/03/19 Pre-op diagnosis: 1. symptomatic cholelithiasis and 2. hyperbilirubinemia Post-op diagnosis: same Procedure: Laparoscopic Cholecystectomy with intraoperative cholangiogram Complications: none Anesthesia: GETA Surgeon: Ele Tracey Was there an certified ophthalmic surgical assistant present: No Estimated blood loss (cc): 25 Specimen: gallbladder Condition: stable Disposition: PACU Procedure in Detail: This 23 year-old was taken to the operating room and placed in the supine position. The anterior abdominal wall is prepped and draped in the usual sterile fashion. A 1-2 cm curvilinear incision is made in the infraumbilical area and subcutaneous tissue was dissected down to anterior rectus fascia. Fascia is grasped with a Kvng clamp, stay sutures were placed in the fascia is divided. Posterior rectus fascia and peritoneum were elevated and divided in the same manner. A Belia port is inserted. Exploration of the intraabdominal cavity reveals an abnormal gallbladder but, normal appearing liver. Under direct visualization after the injection of 0.5% Marcaine the three right subcostal 5 mm ports were inserted. The patient is placed in reverse Trendelenburg position and rotated to the left. The gallbladder is grasped and retracted in cephalad direction. It is also grasped and retracted in the lateral direction. The cystic duct was carefully identified circumferentially dissected and clipped near the neck of the gallbladder. A cholecystodochotomy is made. A cholangiocatheter is placed in the cystic duct. A cholangiogram is obtained. There is easy filling of the CBD, common hepatic duct and hepatic radicals. Easy filling of the duodenum is appreciated. When the cholangiocatheter is completed, the catheter is removed. The cystic duct is doubly clipped and divided between clips. The gallbladder is dissected off the liver bed using electrocautery. Hemostasis was perfected using electrocautery. The gallbladder is removed from the intra-abdominal cavity using an Endo Catch bag. Copious irrigation is carried out in the intra-abdominal cavity, Kelly's pouch and the gallbladder fossa. The pneumoperitoneum was allowed to escape under direct visualization. The ports were removed also under direct visualization. The fascia at the infraumbilical incision is closed using 0 Vicryl sutures. All skin incisions are closed using 4-0 Monocryl subcuticular stitches. Steri-Strips are placed. Sterile dressing is placed. Patient tolerated procedure well was taken to the PACU in good condition.
[2019-04-03] MEDS ORDERED: Ondansetron 4 MG/2 ML VIAL IVP PRN (16:27)
[2019-04-03] MEDS ORDERED: Lanolin 7 G OINT...G. TP PRN (16:27)
[2019-04-03] MEDS ORDERED: Ibuprofen 600 MG TABLET PO PRN (16:27)
[2019-04-03] MEDS ORDERED: *HR* OxyCODONE/APAP 5/325 TABLET PO PRN (16:27)
--- NOTE | 2019-04-03 16:29 | Discharge Summary ---
Orders not resulted at time of discharge: Pending orders 04/03/19 15:16 Surgical Pathology [PTH] Routine Date of Encounter: 04/03/19 Time of Encounter: 16:00 - Discharge Diagnosis (1) Symptomatic cholelithiasis Priority: Primary Status: Acute (2) Elevated transaminase level Priority: Primary Status: Acute (3) Hyperbilirubinemia Priority: Primary Status: Acute General Surgery Exam Initial Vital Signs Temp Pulse Resp BP Pulse Ox 97.7 F 75 20 121/80 98 04/02/19 16:22 04/02/19 16:22 04/02/19 16:22 04/02/19 16:22 04/02/19 16:22 - General physical appearance well developed, well nourished, no distress - Eyes PERRL, normal ocular movement, icteric - ENT normal mucosa, no congestion. negative: nasal discharge - Neck trachea midline, no venous distension - Respiratory normal respiratory effort, clear to auscultation - Cardiovascular Cardiovascular exam: Present: RRR. Absent: murmurs, JVD - Abdomen Abdomen general surgery: Present: bowel sounds present, soft, tender - Incision Incision: Present: clean and dry, intact - Genitourinary Present: normal external genitalia - Integumentary Integumentary general surgery: Present: warm and dry - Neurologic Present: CN 2-12 grossly intact - Musculoskeletal Present: normal gait, normal posture - Psychiatric Psychiatric general surgery: Present: A&Ox3, appropriate - Hospital Course Hospital course: Ms. Augustine is a 23 year old female admitted for acute gallbladder issues. She underwent Lap britni with IOC. She tolerated surgery well and her condition was satifactory for DC home on POD#0. - Time Spent with Patient Total time spent providing and/or coordinating discharge services: Less than 30 minutes - Discharge Medications Prescriptions: No Action Vit/Iron Fumarate/FA [ Tablet] 1 each PO DAILY Breast Pump [BREAST PUMP] 1 each .ROUTE AD #1 each Ibuprofen [Motrin] 600 mg PO Q6HR PRN #30 tablet PRN Reason: Cramping Lanolin [Lansinoh] 1 appl TP QID PRN oint...g. PRN Reason: Ranitidine HCl [Zantac 75] 75 mg PO DAILY Home Medications: Vit/Iron Fumarate/FA [ Tablet] 1 each PO DAILY 01/30/19 [History] Breast Pump [BREAST PUMP] 1 each .ROUTE AD #1 each 02/01/19 [Rx] Ibuprofen [Motrin] 600 mg PO Q6HR PRN #30 tablet 02/02/19 [Rx] Lanolin [Lansinoh] 1 appl TP QID PRN oint...g. 02/02/19 [Rx] Ranitidine HCl [Zantac 75] 75 mg PO DAILY 04/02/19 [History] Oxycodone HCl/Acetaminophen [Percocet 5-325 mg Tablet] 1 each PO Q4HR 7 Days #28 tablet 04/03/19 [Rx] Allergies/Adverse Reactions: Allergy/AdvReac Type Severity Reaction Status Date / Time No Known Allergies Allergy Verified 01/30/19 19:30 Date of admission: 04/02/19 20:10 Primary care physician: PCP NONE Discharging clinician: Ele Tracey Anticipated date of discharge: 04/03/19 Labs on day of discharge: Labs from last 24 hours 04/03/19 04/03/19 04/02/19 01:43 01:43 18:20 WBC 4.4 RBC 4.31 Hgb 12.6 Hct 37.1 MCV 86.1 MCH 29.2 MCHC 34.0 RDW 11.8 Plt Count 222 MPV 9.4 Immature Gran % 0.2 Seg Neutrophils % 50.6 Lymphocytes % 34.8 Monocytes % 9.9 Eosinophils % 3.4 Basophils % 1.1 Neutrophils # 2.2 Lymphocytes # 1.5 Monocytes # 0.4 Eosinophils # 0.2 Basophils # 0.1 Sodium 138 Potassium 3.6 Chloride 104 Carbon Dioxide 26 BUN 6 Creatinine 0.55 L Est GFR ( Amer) > 60 Est GFR (Non-Af Amer) > 60 BUN/Creatinine Ratio 11 Glucose 73 Calculated Osmolality 282 Calcium 9.0 Total Bilirubin 4.1 H Direct Bilirubin Indirect Bilirubin AST 558 H ALT 822 H Alkaline Phosphatase 234 H Serum Total Protein 6.5 Albumin 4.0 Globulin 2.5 Albumin/Globulin Ratio 1.6 Lipase Urine Color Urine Clarity Urine pH Ur Specific [place] Urine Protein Urine Glucose (UA) Urine Ketones Urine Blood Urine Nitrite Urine Bilirubin Urine Urobilinogen Ur Leukocyte Esterase Urine Microscopic RBC Urine Microscopic WBC Ur Squamous Epith Cells Urine Bacteria Hyaline Casts Urine Test Negative 04/02/19 04/02/19 04/02/19 18:20 16:53 16:53 WBC 4.4 RBC 4.69 Hgb 13.9 Hct 41.4 MCV 88.3 MCH 29.6 MCHC 33.6 RDW 11.9 Plt Count 249 MPV 9.3 L Immature Gran % Seg Neutrophils % Lymphocytes % Monocytes % Eosinophils % Basophils % Neutrophils # Lymphocytes # Monocytes # Eosinophils # Basophils # Sodium 137 Potassium 4.0 Chloride 102 Carbon Dioxide 25 BUN 7 Creatinine 0.62 Est GFR ( Amer) > 60 Est GFR (Non-Af Amer) > 60 BUN/Creatinine Ratio 11 Glucose 91 Calculated Osmolality 282 Calcium 9.6 Total Bilirubin 5.1 H Direct Bilirubin 3.1 H Indirect Bilirubin 2.0 H AST 1093 H ALT 1064 H Alkaline Phosphatase 270 H Serum Total Protein 7.4 Albumin 4.6 Globulin 2.8 Albumin/Globulin Ratio 1.6 Lipase 41 Urine Color Yellow Urine Clarity Cloudy A Urine pH 6.5 Ur Specific [place] 1.005 L Urine Protein Negative Urine Glucose (UA) Normal Urine Ketones Trace H Urine Blood Negative Urine Nitrite Negative Urine Bilirubin Small H Urine Urobilinogen Normal Ur Leukocyte Esterase Moderate H Urine Microscopic RBC 0-3 Urine Microscopic WBC 5-15 H Ur Squamous Epith Cells Many H Urine Bacteria None Seen Hyaline Casts None Seen Urine Test - Impressions ITS Impressions Gallbladder Ultrasound 04/02/19 16:41 IMPRESSION: 1. Small gallstones or sludge without evidence of cholecystitis. 2. Common bile duct is at the upper limits of normal measuring 6 mm. Correlate with labs for any evidence of biliary obstruction. 3. Fatty/fibrotic infiltration of the liver. D/ / Dean Barksdale MD / Dean Barksdale MD Interpreting Provider: Dean Barksdale MD Cholangiogram,Operative 04/03/19 11:47 IMPRESSION: Normal intraoperative cholangiogram D/ / Malik Wolff MD / Malik Wolff MD Interpreting Provider: Malik Wolff MD - Patient Status Disposition: Home, Self-Care Condition: Good Functional capacity at discharge: independent ambulation Overall status at discharge: patient is back to baseline - Discharge Instructions Follow Up With: NONE,PCP [Primary Care Provider] - Ele Crews [Partnered Physician] - Additional Instructions: No heavy lifting or straining >25#. May resume breast feeding after pump and dump x1 after anasthesia. No driving while on Percocet. May shower. Call Acute Care Surgery at [facility] for F/U appt in 4 weeks. - Diet and Activity Activity: other (No heavy lifting or straining >25#. May resume breast feeding after pump and dump x1 after anasthesia. No driving while on Percocet. May shower. Call Acute Care Surgery at [facility] for F/U appt in 4 weeks. ) Diet: advance to your usual diet
[2019-04-03] MEDS ORDERED: NON-FORMULARY MEDICATION 1 EACH EACH (Breast Pump [Breast Pump] 1 EACH) SCH (16:30)
[2019-04-03] MEDS ORDERED: Acetaminophen IV 1,000 MG/100 ML INFUS..BTL IVPB SCH (18:00)
[2019-04-03 18:54] VITALS: BP 105/69
[2019-04-04] MEDS ORDERED: Famotidine 20 MG TABLET PO SCH (09:00)
[2019-04-04] MEDS ORDERED: Prenatal Vit/FA 1 EACH TABLET PO SCH (09:00)
== END 2019-04-03 19:08 | disposition home or self-care (01) ==
LOC: 3BNU 16:21 → EMEROOARM 16:21 → 3BNU 20:50
PROVIDERS: ADMIT Surgery; ATTEND Surgery